=== PATIENT | male | born 1940 | race Caucasian/White ===

== ENCOUNTER 2016-11-19 13:32 | Inpatient (IN) | payer MEDICARE, OTHER ==
[~2016-11-19] VITALS: Ht 177.8 cm; Wt 68.0 kg
[~2016-11-19 13:32] MED LIST: ATEN50TA PO; CHOL200047 PO; MULT-666 PO; WARF2TAB7 PO; ZOF8 PO
[2016-11-19 13:58] VITALS: BP 92/54; PULSE 108; RESP 16; O2SAT 99
[2016-11-19] MEDS ORDERED: 0.9% Sodium Chloride 1,000 ML IV ONE ×3 (14:31→15:20)
--- NOTE | 2016-11-19 14:31 | ED.REPORT ---
HPI-Abd Pain M 40 and Over Date of Service Nov 19, 2016 ED Provider: Nitin Mendez MD The pt is a 76 y/o male w/ a hx of cancer and HTN presenting to the ED complaining of diarrhea onset 3 days ago. He reports hearing gurgling as well as severe stomach pain every 10 minutes depending on the position of his body. Lying supine decreases the pain but laying on his side increases it. The pt has not eaten solid foods since three days ago which has helped decrease his symptoms. Episodes of flatulence help the pt feel better but he does not feel like he has a complete bowel blockage. His friend also reports the pt sounding "drunk and like a child" last night but the pt reports not taking any medication of consuming alcohol. He also reports having chills. Denies fever, vomiting, nausea, diaphoresis. Nursing Notes Stated Complaint: STOMACH PAIN Chief Complaint: Male Abdominal Pain Nursing Notes Reviewed: Yes (CapLinked, meds not reconciled - h/o warfarin use, now on XARELTO) Allergies: Coded Allergies: No Known Allergies (Unverified , 10/06/15) Scheduled Atenolol (Atenolol) 25 Mg Tablet 50 MG PO QAM Cholecalciferol (Vitamin D3) (Vitamin D3) 2,000 Unit Capsule 2,000 UNIT PO DAILYWD Melatonin (Melatonin) 5 Mg Tablet 5 MG PO HS Multivitamin (Once Daily) 1 Each Tablet 1 EACH PO DAILYWD Rivaroxaban (Xarelto) 20 Mg Tablet 20 MG PO DAILYWD Scheduled PRN Ondansetron (Zofran) 8 Mg Tablet 8 MG PO Q8H PRN PRN For Nausea General Time Seen by MD: 14:29 Chief Complaint Diarrhea moderate Hx Obtained From: Patient Arrived By: Walk-in Sudden in Onset?: Yes Onset Occurred: 3 days ago Recent Healthcare: No recent hospitalization, Recent doctor visit Similar Sx Previous: No Past Medical History Past Medical History Notes: Oncologist Dr. 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 Skin: Denies Diaphoresis Physical Exam Initial Vital Signs Vital Signs (First) Date Time Temp Pulse Resp B/P Pulse Ox O2 Delivery O2 Flow Rate FiO2 11/19/16 13:58 37.1 108 16 92/54 99 Room Air Initial VS: Reviewed, Vital signs abnormal General/Constitutional: Awake, Alert, Well appearing, Not toxic appearing No dehydration although pt describes being dehydrated Respiratory / Chest: Atraumatic, Breath sounds NL, Breath sounds = bilat Cardiovascular: Heart rate NL, Regular rhythm, Heart sounds NL Abdomen: Atraumatic, Soft, Non-tender No signs of abdominal peritonitis Back: Atraumatic, Full range of motion Head / Eyes: Atraumatic, Normocephalic ENT: Atraumatic, Airway patent Skin: Atraumatic, Color NL, No rash, Warm, Dry Neurologic: Oriented X3, Speech NL Psychiatric: Affect NL, Mood NL Interpretation & Diagnostics Lab Results Interpretation Result Diagram: 11/19/16 1415 11/19/16 1415 Test 11/19/16 14:15 11/19/16 14:42 11/19/16 16:50 White Blood Count 3.6th/mm3 (3.8-10.1) Red Blood Count 3.22mil/mm3 (4.40-5.80) Hemoglobin 11.2g/dL (13.8-17.2) Hematocrit 32.0% (41.0-50.0) Mean Corpuscular Volume 99.4fL (81-100) Mean Corpuscular Hemoglobin 34.8pg (27.0-35.0) Mean Corpuscular Hemoglobin Concent 35.0% (32.0-37.0) Red Cell Distribution Width 19.0% (12.3-15.4) Platelet Count 124bil/L (150-400) Neutrophils (%) (Auto) 27% (40-74) Lymphocytes (%) (Auto) 23% (14-46) Monocytes (%) (Auto) 20% (4-12) Eosinophils (%) (Auto) 0% (0-5) Basophils (%) (Auto) 0% (0-3) Band Neutrophils % 30% (1-5) Nucleated Red Blood Cells 2/100 WBC (0-24) Sodium Level 137mEq/L (134-144) Potassium Level 3.0mEq/L (3.5-5.2) Chloride Level 104mEq/L (97-108) Carbon Dioxide Level 17mmol/L (18-29) Blood Urea Nitrogen 22mg/dL (8-27) Creatinine 0.79mg/dL (0.76-1.27) Estimat Glomerular Filtration Rate 102mL/min (>59) Glucose Level 149mg/dL (60-99) Calcium Level 8.6mg/dL (8.5-10.1) Magnesium Level 1.6mg/dL (1.6-2.6) Total Bilirubin 0.9mg/dL (0.0-1.2) Aspartate Amino Transf (AST/SGOT) 14U/L (0-50) Alanine Aminotransferase (ALT/SGPT) 15U/L (0-44) Alkaline Phosphatase 41U/L (25-160) Total Protein 5.8g/dL (6.4-8.4) Albumin 3.3g/dL (3.4-5.0) Lipase 42U/L (13-60) Prothrombin Time 17.8sec (8.1-12.5) Prothromb Time International Ratio 1.65ratio Lactic Acid Level 1.6mmol/L (0.4-2.0) Lab Results Interpretation: CBC mild leukopenia, not neutropenic-differential notable for 30% bandemia, mild anemia, mild thrombocytopenia -on chemotherapy CMP moderate hypokalemia, moderately low CO2 INR is marginally elevated-all the patient is just transferred to [facility] Blood cultures pending ECG Interpretation ECG Interpretation: Rate 117 Atrial fibrillation Nonspecific repolarization abnormality, diffuse leads Time: 14:51 Interpreted by: ED physician CT Abd / Pelvis Interpretation IMPRESSION: 1. Findings consistent with severe enteritis of the mid and distal small bowel. No findings to suggest obstruction. 2. Multiple subcentimeter hypodense liver lesions some of which are present and enhance on the comparison MRI dated 08/17/16. These findings are suspicious for metastatic disease. These findings were discussed with Dr. Mendez at 3:58 PM on 11/19/16. Dictated by: Chiquita Cheng M.D. on 11/19/2016 at 15:50 Approved by: Chiquita Cheng M.D. on 11/19/2016 at 16:00 Study type: Abdom CT oral contrast Interpretation / Wet Read by: Interpret - Radiologist Re-Eval/Medical Decision Med Decision/Clinical Course This is a 76-year-old male on chemotherapy for metastatic colon CA he developed diarrhea and crampy abdominal discomfort on Saturday, and his symptoms have persisted and he still feels lousy and weak. He had terrible diarrhea Saturday and Saturday, but reports basically stopped eating solid foods the diarrhea has diminished-only still has intermittent crampy discomfort. He has had some chills, but is not certain he has had a fever. He has intermittent pain-but reports he is not having pain at the moment declines any pain medicines in the department. He reports no vomiting. He denies any nausea present. He reports he has been holding on throughout the weekend, waiting to come in to [facility] today is his oncologist is here. He denies any known infectious exposures, has no additional complaints. Exam he is fatigued, but nontoxic. His abdomen is actually soft and clinically nontender without signs of a surgical abdomen or peritonitis. Lab work was obtained and is notable for significant bandemia 30%, when I discussed this with his oncologist given his chemotherapy regimen he thinks that this is indeed slightly this portion it for his recovery phase, and recommends cultures and empiric antibitiocs with levaquin. Blood cultures are being drawn. Have ordered stool GI panel for PCR, but the patient does not had an episode of diarrhea here. CT imaging is indeed suggestive of diffuse enteritis, and also reveals that known metastases. I discussed the case with the patient's oncologist and the plan is admission, hydration, potassium replacement empiric antibiotics. Source of Hx: Old records Time of Eval: 16:40 Re-Evaluation/Progress Note: Pt rechecked. Informed pt of need for admission. Pt understands and agrees with plan for admission. All questions addressed. Consultation #1: Referral / Consult Name: Virgilio Iraheta MD Fish Agent: Will see patient, Agrees with plan Note: Cases discussed. He indicates the bandemia is higher than expected for his chemotherapy regiment and recommends cultures and empiric box with Levaquin. He recommends admission for IV fluids, potassium replacement, and anticipates seeing the patient in the morning. Consultation #2: Referral / Consult Name: Sahil Bagi MD Consulted With: Hospitalist Call Returned at: 17:16 Fish Agent: Will see patient, Agrees with eval, Agrees with plan, Accepts admit Counseled Regarding: Diagnosis, Lab results, Need for admission Discharge & Departure Primary Impression: Chest pain Chest pain type: unspecified Qualified Code: R07.9 - Chest pain, unspecified Disposition: ADMITTED TO HOSPITAL Vital Signs - All Vital Signs Date Time Temp Pulse Resp B/P Pulse Ox O2 Delivery O2 Flow Rate FiO2 11/19/16 16:24 36.8 106 16 101/64 100 Room Air 11/19/16 13:58 37.1 108 16 92/54 99 Room Air )( All Prior VS Reviewed: Yes Condition: Stable Referrals: OTHER,PHYSICIAN (PCP) [facility] Scribe Attestation Portions of this note were transcribed by Edson Cerrato. I, Dr. Mendez personally performed the history, physical exam and medical decision-making; I reviewed and confirmed the accuracy of the information in the transcribed note. Signed by : Benjie Romero, 11/19/16 and 1641. copies to: [facility] Nitin Mendez MD Nov 19, 2016 14:31 Edson Cerrato Nov 19, 2016 16:41
[2016-11-19] MEDS ORDERED: Ondansetron 2 mg/mL 2 mL Inj IVPUSH ONE (14:35)
[2016-11-19] MEDS ORDERED: HYDROmorphone 0.5 mg/0.5 mL iSecure Syringe IVPUSH PRN (14:35)
[2016-11-19 14:40] LABS: Mean Corpuscular Hemoglobin 34.8 pg (27.0-35.0); Mean Corpuscular Volume 99.4 fL (81-100); Platelet Count 124 bil/L (150-400)
[2016-11-19 14:49] LABS: Magnesium 1.6 mg/dL (1.6-2.6)
[2016-11-19 15:04] LABS: BASOPHILS % (AUTO) 0 % (0-3); EOSINOPHILS % (AUTO) 0 % (0-5); MONOCYTES % (AUTO) 20 % (4-12); NEUTROPHILS % (AUTO) 27 % (40-74)
[2016-11-19 15:06] LABS: INR 1.65 ratio
--- NOTE | 2016-11-19 16:02 | DRSVH ---
PROCEDURE: CT ABDOMEN AND PELVIS WITH CONTRAST ([id number]) INDICATIONS: abd pain TECHNIQUE: After the administration of intravenous contrast, 5 mm thick sections acquired from the diaphragm to the symphysis. 5 mm coronal and sagittal reformats were acquired. For radiation dose reduction, the following was used: automated exposure control, adjustment of mA and/or kV according to patient siz e. COMPARISON: Outside Film, MR, MR ABD MRCP, 08/17/2016, 13:54. Outside Film, CT, CT CHEST ABD PELVIS W CON, 05/10/2016, 10:50. Outside Film, CT, CT ABD PELVIS W CON, 08/13/2015, 15:30. Outside Film, CT , CT ABD PELVIS W CON, 10/19/2016, 11:12. FINDINGS: Image quality: Excellent. ABDOMEN: Lung bases: Mild atelectasis is present at the right lung base. No pleural effusion or pneumothorax. Solid organs: Liver and spleen are normal in size and enhancement. Subcentimeter low density lesions are present within the liver. These were not visualized on the comparison CT dated 05/10/16 [facility] isaiah ent for new hepatic metastasis. Gallbladder is contracted. Biliary system is non dilated. Pancreas enhances normally. Low-density right adrenal gland nodule is unchanged suggesting an adrenal adenoma. No left adrenal nodules. Kidneys demonstrate normal size and enhancement, without hydronephrosis. A low density cystic lesion is present within the left upper pole. A large low density cyst is present within the lower pole of the right kidney. Peritoneum and bowel: The stomach is decompressed. The proximal portion of the small bowel demonstrat es normal caliber and wall thickness. Patient is status post right hemicolectomy. The mid and distal portion of the remaining small bowel demonstrates diffuse mucosal thickening and perienteric fat stra nding. No pneumatosis. No free abdominal fluid. No pneumoperitoneum. Nodes and vessels: No retroperitoneal or mesenteric adenopathy by size criteria. Aorta and inferior vena cava are normal in size. Miscellaneous: No ventral hernias. PELVIS: Genitourinary: Bladder wall thickness is normal. Miscellaneous: No inguinal hernias or adenopathy. Bones: No suspicious bony lesions. No vertebral body compression fractures. IMPRESSION: 1. Findings consistent with severe enteritis of the mid and distal small bowel. No findings to sugges t obstruction. 2. Multiple subcentimeter hypodense liver lesions some of which are present and enhance on the compar anitha MRI dated 08/17/16. These findings are suspicious for metastatic disease. These findings were discussed with Dr. Mendez at 3:58 PM on 11/19/16. Dictated by: Chiquita Cheng M.D. on 11/19/2016 at 15:50 Approved by: Chiquita Cheng M.D. on 11/19/2016 at 16:00
[2016-11-19] MEDS ORDERED: Potassium Chloride 20 mEq/15 mL 15mL Oral Soln PO ONE (16:20)
[2016-11-19] MEDS ORDERED: levoFLOXacin Inj 750 MG in IV Premix 1 EACH IV ONE (16:20)
[2016-11-19 16:24] VITALS: BP 101/64; PULSE 106; RESP 16; O2SAT 100
[2016-11-19] MEDS ORDERED: ATEN25TA PO (16:44)
[2016-11-19] MEDS ORDERED: RIVA20TA PO (16:44)
[2016-11-19] MEDS ORDERED: MELA5TAB14 PO (16:46)
[2016-11-19] MEDS ORDERED: 0.9% Sodium Chloride 1,000 ML IV SCH (17:31)
[2016-11-19] MEDS ORDERED: Alum-Mag Hydrox-Simeth 30 mL Suspension PO PRN ×2 (17:35→17:55)
[2016-11-19] MEDS ORDERED: Ondansetron 2 mg/mL 2 mL Inj IVPUSH PRN ×2 (17:35→17:55)
[2016-11-19] MEDS ORDERED: Polyethylene Glycol (PEG) 17 Gm Powder PO PRN (17:55)
[2016-11-19 18:08] VITALS: BP 117/71; PULSE 120; RESP 19; O2SAT 100
[2016-11-19 18:23] VITALS: PULSE 102
[2016-11-19] MEDS ORDERED: Sodium Chloride LOK Flush 10 mL Syringe IVFLUSH PRN ×2 (19:20)
[2016-11-19] MEDS ORDERED: 0.9% Sodium Chloride 250 ML IV SCH (19:20)
[2016-11-19] MEDS ORDERED: HepLOK Flush 100 unit/mL 5 mL Inj IVFLUSH PRN (19:20)
[2016-11-19 20:00] VITALS: PULSE 125
[2016-11-19 21:08] VITALS: BP 111/69; PULSE 100; RESP 20; O2SAT 100
--- NOTE | 2016-11-19 21:21 | PCM.HPMED ---
Subjective Date of Service Nov 19, 2016 Primary Provider: Admitting Physician: Sahil Baig MD Primary Care Physician: Other,Physician Attending Physician: Sahil Baig MD Chief Complaint: "Stomach pain" History of Present Illness: The patient is a pleasant 76-year-old white male with a previous history of hypertension and atrial fibrillation who developed a bowel obstruction one year and 3 months ago. He was found to have colon cancer and underwent a colon resection with primary reanastomosis at [facility] in [place], [place]. Patient was then referred to a local oncologist and eventually chose to go to met Dr. Iraheta in [place], [place]. 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 The patient was started on chemotherapy and received 12 cycles for 24 weeks ending in April 2016. The patient earlier this year, he believes in approximately July, began a new chemotherapy with XELIRI. Patient has received 2 rounds of chemotherapy and after the second cycle head diarrhea. Patient presented to the emergency department today complaining of diarrhea with an onset 3 days ago. He reported hearing gurgling as well as having severe stomach pain every 10 minutes depending on the position of his body. He stated that lying supine decrease the pain but lying on his side increased it. The patient had not eaten solid food since 3 days ago when he first developed the abdominal pain. Episodes of flatulence of help the patient feel better. He did not feel like he had a complete lateral bowel back blockage like he has had in the past. He also reported having chills with shivering in his room in his condominium which was quite warm. He thought it was that the room was very warm and he continued to shiver. He then came to [facility] emergency room and was evaluated by Dr. Nitin Mendez. Dr. Nitin Mendez contacted Dr. Iraheta who recommended that the patient be placed on Levaquin and be admitted to the hospital. Therefore, the patient was admitted to the hospital service for further evaluation and treatment. Review of Systems: General.: Patient states that he was a flabby fat kid when he was growing up and he works very hard to get to a normal weight he was eventually successful and has maintained that weight and has not lost any significant weight since the diagnosis of colon cancer. HEENT: Patient has no headache, patient has no diplopia, patient has no changes in vision. He wears corrective lenses. Patient has no problems with his ears, nose or throat. Patient has no known dental problems. Patient has no pharyngitis or history of thrush. Neck: Patient has no stiffness in the neck. Patient has no lymphadenopathy. Patient has no other problems with their neck. Pulmonary: Patient has no shortness of breath, no cough, no expectoration of sputum. Patient has no pleurisy. Patient has no chest pain. Patient has no history of asthma or COPD. Cardiovascular: Patient has no chest pain. Patient has no history of heart murmur. Patient has no palpitations. Patient has no history of myocardial infarction. Patient has no history of coronary artery disease. The patient does have a long history of atrial fibrillation and was on warfarin until recently when he was switched his or also due to possibility of interaction with warfarin with his new chemotherapy. Gastrointestinal: Patient has no history of hepatitis A or B. He does have a history of hepatitis C. and underwent 24 months of treatment with interferon infusions and his hepatitis C appears to be in remission, as multiple tests for the virus have been undetectable. Patient was tested for HIV a year ago and was negative. Patient has no history of peptic ulcer disease. Patient has no history of gastroesophageal reflux disease. Patient now has nausea without vomiting. The patient now has abdominal pain and diarrhea. Patient has no history of hematemesis, hematochezia, or melena. Patient has no history of colitis previously. Renal: Patient has no history of kidney disease. No history of kidney stones. Genitourinary: Patient has no history of dysuria, frequency, or incontinence. Patient has no previous history of genitourinary problems. Patient does state that he has nocturia 2-3 times in the evening. He has never been diagnosed with BPH however. Musculoskeletal: Patient has no history of muscular skeletal problems. Neurologic: Patient has no history of stroke, no history of seizure, no history of TIA. Psychiatric: Patient has no history of psychiatric problems. The remainder of the entire review of systems was reviewed with patient and is as mentioned above otherwise negative. Allergies Coded Allergies: No Known Allergies (Unverified , 10/06/15) Home Medications Scheduled Atenolol (Atenolol) 25 Mg Tablet 50 MG PO QAM Cholecalciferol (Vitamin D3) (Vitamin D3) 2,000 Unit Capsule 2,000 UNIT PO DAILYWD Melatonin (Melatonin) 5 Mg Tablet 5 MG PO HS Multivitamin (Once Daily) 1 Each Tablet 1 EACH PO DAILYWD Rivaroxaban (Xarelto) 20 Mg Tablet 20 MG PO DAILYWD Scheduled PRN Ondansetron (Zofran) 8 Mg Tablet 8 MG PO Q8H PRN PRN For Nausea PMH T3 N2 aM1 be moderately differentiated, invasive colorectal cancer invading the cecum just distal to the ileocecal valve on chemotherapy (now on XELIRI) Atrial fibrillation Hypertension Hepatitis C treated with interferon for 24 months with excellent outcome Patient states that he has never had a Bioprosthetic [facility] aortic valve which is listed in his computerized medical history Surgical History Patient has had a tonsillectomy Patient has had a right inguinal hernia repair 50 years later patient had a left inguinal hernia repair Patient had a colon resection of his adenocarcinoma with primary reanastomosis approximately 1 year and 3 months ago at [facility] in [place], [place]. He states that he never had a bioprosthetic aortic valve placed or any other heart surgery. Family History Patient's father at the age of 78 from some sort of cancer the patient does not know what type. Patient's mother of a brain cancer which she was diagnosed with a 34 and she at 46. The patient has a half-brother which he has not spoken to in 10 years, and this far he knows he is healthy. Social History Hx Alcohol Use: Yes (The patient prefers to drink wine and occasionally will have a 750 mL bottle approximately 3 times a week.) Hx Substance Use: Yes (patient admits to smoking marijuana periodically. However, he did not want to talk about other previous drug use when he was younger. He did shoot narcotics intravenously one time and believes us how he got hepatitis C a long time ago.) Smoking Status: Former Smoker (The patient smoked for 2-3 years.) Years of Smokin Living Arrangement: with Family (The patient lives with his longtime significant other in [place], [place].) Additional Information The patient was born [place], [place]. As his mother at the end age of 46 with brain cancer that she suffered with for 12 years the patient went to a couple "boarding schools" he then ended up graduating from [place], [place] high school. Patient due to "wander last traveled across the [facility] to [place] and went to [facility] and then "dropped out" of college. 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 Patient then took a civil service exam and landed a job at the [employer]. 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 Patient states that he easily "throws fits " or loses his temper and during one of these episodes he also lost his job. 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 After serving 8 years of [employer] and [place] and 23 years in [place] he was offered early fdc and retired at the age of 58. Her random assortment of events patient ended up moving with his significant other to the [facility]. His significant other eventually lost his leg due to a sequence of circumstances and the couple ended up moving to [place], [place]. Together they live [place] in [place] [facility] Exam Vital Signs Vital Sign - Last Date Time Temp Pulse Resp B/P Pulse Ox O2 Delivery O2 Flow Rate FiO2 11/19/16 21:08 36.8 100 20 111/69 100 Room Air Exam General: Patient appears comfortable now that he has passed stool flatus and urine prior to my arrival. He occasionally is having hiccups or gastroesophageal reflux. HEENT: Head is atraumatic and normocephalic. With normal male pattern baldness Eyes: Pupils are equally round and reactive to light and accommodation. Extraocular muscles are intact. Sclera are white, anicteric. Subconjunctival mucosa is pink. Ears and nose are unremarkable. Oropharynx: There is no mucosal lesions, there is no thrush, there is no pharyngitis. Neck: Is supple, there are no nodes, or masses or tenderness. Chest: Is clear to auscultation and percussion. There are no rales, rhonchi, wheezes or rubs. Heart: Rate, rhythm is regular. There is no murmur, rub or gallop. Abdomen: Good bowel sounds are present. Abdomen is soft, nontender, no organomegaly or masses were appreciated. Extremities: Are symmetrical and well perfused. There is no edema, there is no cellulitis, no rash. There are a few areas of ecchymosis which the patient states he developed during the interferon treatments for his hepatitis C. Neurologic: There are no focal neurological deficits. Cranial nerves II through XII are intact. There are no sensory or motor deficits. Psychiatric: Patients mood is calm and shows no sign of agitation. Genital: Deferred Rectal: Deferred Lab and Diagnostics Result Diagram: 11/19/16 1415 11/19/16 141 Microbiology Blood cultures are pending and stool for gastrointestinal PCR panel is pending. X-Rays, CTs and MRIs PROCEDURE: CT ABDOMEN AND PELVIS WITH CONTRAST ([id number]) INDICATIONS: abd pain TECHNIQUE: After the administration of intravenous contrast, 5 mm thick sections acquired from the diaphragm to the symphysis. 5 mm coronal and sagittal reformats were acquired. For radiation dose reduction, the following was used: automated exposure control, adjustment of mA and/or kV according to patient size. COMPARISON: Outside Film, MR, MR ABD MRCP, 08/17/2016, 13:54. Outside Film, CT , CT CHEST ABD PELVIS W CON, 05/10/2016, 10:50. Outside Film, CT, CT ABD PELVIS W CON, 08/13/2015, 15:30. Outside Film, CT, CT ABD PELVIS W CON, 2016, 11:12. FINDINGS: Image quality: Excellent. ABDOMEN: Lung bases: Mild atelectasis is present at the right lung base. No pleural effusion or pneumothorax. Solid organs: Liver and spleen are normal in size and enhancement. Subcentimeter low density lesions are present within the liver. These were not visualized on the comparison CT dated 05/10/16 [facility] patient for new hepatic metastasis. Gallbladder is contracted. Biliary system is non dilated. Pancreas enhances normally. Low-density right adrenal gland nodule is unchanged suggesting an adrenal adenoma. No left adrenal nodules. Kidneys demonstrate normal size and enhancement, without hydronephrosis. A low density cystic lesion is present within the left upper pole. A large low density cyst is present within the lower pole of the right kidney. Peritoneum and bowel: The stomach is decompressed. The proximal portion of the small bowel demonstrates normal caliber and wall thickness. Patient is status post right hemicolectomy. The mid and distal portion of the remaining small bowel demonstrates diffuse mucosal thickening and perienteric fat stranding. No pneumatosis. No free abdominal fluid. No pneumoperitoneum. Nodes and vessels: No retroperitoneal or mesenteric adenopathy by size criteria. Aorta and inferior vena cava are normal in size. Miscellaneous: No ventral hernias. PELVIS: Genitourinary: Bladder wall thickness is normal. Miscellaneous: No inguinal hernias or adenopathy. Bones: No suspicious bony lesions. No vertebral body compression fractures. IMPRESSION: 1. Findings consistent with severe enteritis of the mid and distal small bowel. No findings to suggest obstruction. 2. Multiple subcentimeter hypodense liver lesions some of which are present and enhance on the comparison MRI dated 08/17/16. These findings are suspicious for metastatic disease. These findings were discussed with Dr. Mendez at 3:58 PM on 11/19/16. Dictated by: Chiquita Cheng M.D. on 11/19/2016 at 15:50 Approved by: Chiquita Cheng M.D. on 11/19/2016 at 16:00 12-lead ECG Atrial fibrillation with nonspecific repolarization abnormality. Cardiac Echo Impressions Pending Assessment & Plan The patient is a pleasant 76-year-old white male with a previous history of hypertension and atrial fibrillation who developed a bowel obstruction one year and 3 months ago. He was found to have colon cancer and underwent a colon resection with primary reanastomosis at [facility] in [place], [place]. Patient was then referred to a local oncologist and eventually chose to go to met Dr. Iraheta in [place], [place]. 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 The patient was started on chemotherapy and received 12 cycles for 24 weeks ending in April 2016. The patient earlier this year, he believes in approximately July, began a new chemotherapy with XELIRI. Patient has received 2 rounds of chemotherapy and after the second cycle head diarrhea. Patient presented to the emergency department today complaining of diarrhea with an onset 3 days ago. He reported hearing gurgling as well as having severe stomach pain every 10 minutes depending on the position of his body. He stated that lying supine decrease the pain but lying on his side increased it. The patient had not eaten solid food since 3 days ago when he first developed the abdominal pain. Episodes of flatulence of help the patient feel better. He did not feel like he had a complete lateral bowel back blockage like he has had in the past. He also reported having chills with shivering in his room in his condominium which was quite warm. He thought it was that the room was very warm and he continued to shiver. He then came to [facility] emergency room and was evaluated by Dr. Nitin Mendez. Dr. Nitin Mendez contacted Dr. Iraheta who recommended that the patient be placed on Levaquin and be admitted to the hospital. Therefore, the patient was admitted to the hospital service for further evaluation and treatment. # Abdominal pain, present at time of admission. Active - CT scan shows evidence of enteritis, see report above. - Rule out enteritis secondary to chemotherapy - Rule out enteritis secondary to infection. A gastrointestinal PCR study was sent this evening. - Dr. Iraheta has recommended Levaquin therapy, will continue # T3 N2 aM1 be moderately differentiated, with metastatic disease to the liver, present at the time of admission. Active - Patient had invasive colorectal cancer invading the cecum just distal to the ileocecal valve. - Patient is now on a second course of chemotherapy (now on XELIRI) - Patient developed diarrhea after the second course of XELIRI - Dr. Iraheta has been contacted by Dr. Nitin Mendez and will follow in a.m. # Atrial fibrillation, present times admission. Active ongoing - Continue atenolol as at home for rate control. - Continue Xarelto as at home per Dr. Iraheta. Apparently patient was taken off warfarin due to potential interactions with his new chemotherapy. # Hypertension, present times admission. Stable - Continue atenolol as at home # History of hepatitis C - Patient levels are apparently undetectable after receiving 48 weeks of interferon infusion therapy. This occurred during the . - Patient was tested for HIV approximately one year ago and was negative. Disposition: As patient will likely be admitted for more than 2 midnights, patient was admitted as an inpatient. Pain Evaluation: Adequate Pain Control GI Prophylaxis: Proton Pump Inhibitor VTE Prophylaxis: Sub-Q Heparin (Unfractionated) Resuscitation Status: CPR: Attempt Resuscitation ProvidenceSahil MD Nov 19, 2016 21:21
[2016-11-19] MEDS: Heparin 5,000 Unit/mL Inj SUBQ SCH (22:12)
[2016-11-19] MEDS ORDERED: Ondansetron 8 mg ODT Tablet PO PRN (22:20)
[2016-11-20] VITALS (9 sets, daily range): BP systolic 110–129; BP diastolic 68–85; PULSE 74–132; RESP 16–20; O2SAT 97–100
[2016-11-20] MEDS: Heparin 5,000 Unit/mL Inj SUBQ SCH ×3 (00:30→17:12)
[2016-11-20 05:17] LABS: BASOPHILS % (AUTO) 0.3 % (0-3); Mean Corpuscular Hemoglobin 35.1 pg (27.0-35.0); Platelet Count 115 bil/L (150-400)
[2016-11-20 05:41] LABS: EOSINOPHILS % (AUTO) 3 % (0-5); MONOCYTES % (AUTO) 20 % (4-12); NEUTROPHILS % (AUTO) 28 % (40-74)
[2016-11-20 06:11] LABS: Magnesium 1.6 mg/dL (1.6-2.6)
[2016-11-20] MEDS: Pantoprazole 40 mg ER24 Tablet PO SCH (07:57)
[2016-11-20] MEDS ORDERED: Magnesium Sulf 4 Gm/100 mL H2O 4 GM in IV Premix 1 EACH IV ONE (08:40)
--- NOTE | 2016-11-20 10:02 | DRSVH ---
PROCEDURE: X-RAY CHEST, TWO VIEWS ([id number]) INDICATIONS: Tachycardia/Possible CHF TECHNIQUE: 2 views of the chest were acquired. COMPARISON: None. FINDINGS: Surgical changes and devices: Right-sided port with tip overlying the atrial caval junction. Lungs and pleura: Tiny bilateral pleural effusions versus diaphragmatic insertions, no pneumothorax. Lungs are clear. Mediastinum: Mediastinal contours are normal. Heart size is normal. Tortuous descending aorta. Bones and chest wall: No suspicious bony abnormalities. Soft tissues appear unremarkable. IMPRESSION: 1. Large inspiration may reflect blunting of the costophrenic angles by diaphragmatic insertions vers us very small bilateral pleural effusions. 2. Lung is clear. 3. Tortuous thoracic aorta could represent atherosclerosis or hypertension. 4. Status post right-sided port Dictated by: Doug Fermin M.D. on 11/20/2016 at 9:57 Approved by: Doug Fermin M.D. on 11/20/2016 at 10:00
[2016-11-20] MEDS: Potassium Chloride 20 mEq SR Tablet PO SCH ×2 (10:10→20:15)
[2016-11-20] MEDS: 0.9% NaCl + KCl 20 mEq/L 1,000 ML IV SCH ×2 (10:11→21:02)
--- NOTE | 2016-11-20 16:13 | DRSVH ---
[facility] [address] [place] [address] Echocardiogram Report Name: JOSE CAO DStudy Date: 11/20/2016 Height: 7 0 in Hospital Exam Location: [facility] Weight: 1 50 lb Gender: Male BSA: 1.8 m2 : 1940 Age: 76 yrs BP: 110/7 5 mmHg Reason For Study: Atrial Fibrillation Performed By: Alondra Contreras Referring Physician: TAD ESTES Interpretation Summary 1) Mild concentric left ventricular hypertrophy with probably mildly reduced LV function (EF 45-50%). LV systolic function is hard to assess due to heart rate variability related to atrial fibrillation. 2) Normal right ventricular size with mildly reduced function. 3) Severe biatrial enlargement. 4) Mild to moderate mitral regurgitation. 5) Mild aortic regurgitation present. 6) Normal pulmonary artery pressures. 7) No prior Echo available for comparison. Procedure: A two-dimensional transthoracic echocardiogram with color flow and Doppler was performed. The study quality was technically adequate. There is no prior echocardiogram noted for this patient. Left Ventricle: The left ventricle is normal in size. Left ventricular wall thickness is mildly increased. Left ventricular systolic function is mildly reduced. The ejection fraction is estimated to be 45-50%. There are no focal wall motion abnormalities. Diastolic function could not be accurately assessed due to atrial fibrillation. Right Ventricle: The right ventricle is grossly normal size. Right ventricular systolic function is mildly reduced. Atria: Both atria are severely dilated. The interatrial septum is intact with no evidence for an atrial septal defect. Mitral Valve: The mitral valve leaflets appear mildly thickened, but open well. There is mild mitral annular calcification. There is mild to moderate mitral regurgitation. There are multiple regurgitant jets present. Aortic Valve: The aortic valve is trileaflet. The aortic valve opens well. The aortic valve is slightly calcified. There is no aortic valve stenosis. There is mild aortic regurgitation. Tricuspid Valve: The tricuspid valve leaflets are thin and pliable. There is mild tricuspid regurgitation. The right ventricular systolic pressure is estimated at 23 mmHg assuming a right atrial pressure of 3 mm Hg. Pulmonic Valve: The pulmonic valve is not well visualized. There is trace pulmonic regurgitation. Great Vessels: The aortic root is mildly dilated. The ascending aorta could not be visualized. The IVC is of normal diameter and collapses greater than 50% with a sniff. This suggests a low right atrial pressure of 3 mm Hg. Pericardium/ Pleura There is no pericardial effusion. There is no pleural effusion. MMode/2D Measurements & Calculations LVIDd: 4.4 cm RA long axis LVOT diam LVIDs: 3.4 cm LA A2 area: 27.3 cm : 2.6 cm FS: 22.9 % LA A4 area: 33.2 cm RA area IVSd: 1.3 cm LA length (vol): 7.2 cm LVPWd: 1.1 cm LA vol: 106.6 ml : 24.4 cm RA vol LA vol index: 57.7 ml/m2: 100.ml RA : 54.5 mm2 LV mitchell. diameter/BSA LV sys. diameter/BSA TAPSE: 1.4 cm (cm/m^2): 2.4 (cm/m^2): 1.8 Doppler Measurements & Calculations Ao V2 max TR max fantasma: 223.6 cm/secAo V2 mean LV V1 max PG : 98.7 cm/sec TR max P.0 mmHg : 77.9 cm/sec Ao max P.0 mmHg PA V2 max: 57.5 cm/sec Ao V2 VTI LV V1 VTI Ao mean P.7 mmHgPA mean P.92 mmHg : 13.2 cm LVOT Max Fantasma ODALIS(V,D): 3.9 cm2 : 73.3 cm/sec ODALIS(I,D): 3.9 cm sev ratio: 0.75 AI P1/2t: 857.0 msec AI dec slope : 145.1 cm/s2c PA V2 mean ODALIS indexed to BSA : 46.9 cm/sec (cm^2/m^2): 2.1 PA pr(Accel) : 37.9 mmHg Reading Physician:04:12 PM
[2016-11-20] MEDS ORDERED: levoFLOXacin Inj 500 MG in IV Premix 1 EACH IV SCH (17:00)
[2016-11-20] MEDS: levoFLOXacin Inj 500 MG in IV Premix 1 EACH IV SCH (17:21)
--- NOTE | 2016-11-20 22:04 | PCM.PNMED ---
Subjective Date of Service Nov 20, 2016 Subjective Patient states it is appetite is still very poor and he was not able to eat much of lunch, he had a little bit for breakfast. He has no other new complaints. Exam Vital Signs Vital Sign - Last Date Time Temp Pulse Resp B/P Pulse Ox O2 Delivery O2 Flow Rate FiO2 11/20/16 20:12 36.8 74 18 129/68 97 Room Air Intake and Output 11/19/16 11/19/16 11/20/16 Cumulative From/Thru 15:00 23:00 07:00 11/19/16 13:58 - 11/20/16 06:47 Intake Total 2000 ml 1021 ml 3021 ml Balance 2000 ml 1021 ml 3021 ml IV Total 2000 ml 1021 ml 3021 ml # Bowel Movements 1 1 Exam General: Patient appears comfortable now that he has passed stool, flatus and urine again prior to my arrival. He occasionally is having hiccups or gastroesophageal reflux. HEENT: Head is atraumatic and normocephalic. With normal male pattern baldness Eyes: Pupils are equally round and reactive to light and accommodation. Extraocular muscles are intact. Sclera are white, anicteric. Subconjunctival mucosa is pink. Ears and nose are unremarkable. Oropharynx: There is no mucosal lesions, there is no thrush, there is no pharyngitis. Neck: Is supple, there are no nodes, or masses or tenderness. Chest: Is clear to auscultation and percussion. There are no rales, rhonchi, wheezes or rubs. Heart: Rate, rhythm is regular. There is no murmur, rub or gallop. Abdomen: Good bowel sounds are present. Abdomen is soft, nontender, no organomegaly or masses were appreciated. Extremities: Are symmetrical and well perfused. There is no edema, there is no cellulitis, no rash. There are a few areas of ecchymosis which the patient states he developed during the interferon treatments for his hepatitis C. Neurologic: There are no focal neurological deficits. Cranial nerves II through XII are intact. There are no sensory or motor deficits. Psychiatric: Patients mood is calm and shows no sign of agitation. Genital: Deferred Rectal: Deferred Lab and Diagnostics Result Diagram: 11/20/16 0455 11/20/16 0455 Microbiology Blood cultures are pending and stool for gastrointestinal PCR panel is pending. X-Rays, CTs and MRIs PROCEDURE: CT ABDOMEN AND PELVIS WITH CONTRAST (PNL-7102) INDICATIONS: abd pain TECHNIQUE: After the administration of intravenous contrast, 5 mm thick sections acquired from the diaphragm to the symphysis. 5 mm coronal and sagittal reformats were acquired. For radiation dose reduction, the following was used: automated exposure control, adjustment of mA and/or kV according to patient size. COMPARISON: Outside Film, MR, MR ABD MRCP, 08/17/2016, 13:54. Outside Film, CT , CT CHEST ABD PELVIS W CON, 05/10/2016, 10:50. Outside Film, CT, CT ABD PELVIS W CON, 08/13/2015, 15:30. Outside Film, CT, CT ABD PELVIS W CON, 2016, 11:12. FINDINGS: Image quality: Excellent. ABDOMEN: Lung bases: Mild atelectasis is present at the right lung base. No pleural effusion or pneumothorax. Solid organs: Liver and spleen are normal in size and enhancement. Subcentimeter low density lesions are present within the liver. These were not visualized on the comparison CT dated 05/10/16 [facility] patient for new hepatic metastasis. Gallbladder is contracted. Biliary system is non dilated. Pancreas enhances normally. Low-density right adrenal gland nodule is unchanged suggesting an adrenal adenoma. No left adrenal nodules. Kidneys demonstrate normal size and enhancement, without hydronephrosis. A low density cystic lesion is present within the left upper pole. A large low density cyst is present within the lower pole of the right kidney. Peritoneum and bowel: The stomach is decompressed. The proximal portion of the small bowel demonstrates normal caliber and wall thickness. Patient is status post right hemicolectomy. The mid and distal portion of the remaining small bowel demonstrates diffuse mucosal thickening and perienteric fat stranding. No pneumatosis. No free abdominal fluid. No pneumoperitoneum. Nodes and vessels: No retroperitoneal or mesenteric adenopathy by size criteria. Aorta and inferior vena cava are normal in size. Miscellaneous: No ventral hernias. PELVIS: Genitourinary: Bladder wall thickness is normal. Miscellaneous: No inguinal hernias or adenopathy. Bones: No suspicious bony lesions. No vertebral body compression fractures. IMPRESSION: 1. Findings consistent with severe enteritis of the mid and distal small bowel. No findings to suggest obstruction. 2. Multiple subcentimeter hypodense liver lesions some of which are present and enhance on the comparison MRI dated 08/17/16. These findings are suspicious for metastatic disease. These findings were discussed with Dr. Mendez at 3:58 PM on 11/19/16. Dictated by: Chiquita Cheng M.D. on 11/19/2016 at 15:50 Approved by: Chiquita Cheng M.D. on 11/19/2016 at 16:00 12-lead ECG Atrial fibrillation with nonspecific repolarization abnormality. Cardiac Echo Impressions Echocardiogram Report Name: NASHJOSE LÓPEZ DStudy Date: 11/20/2016 Height: 7 0 in Hospital Exam Location: [facility] Weight: 1 50 lb Gender: Male BSA: 1.8 m2 : 1940 Age: 76 yrs BP: 110/7 5 mmHg Reason For Study: Atrial Fibrillation Performed By: Alondra Contreras Referring Physician: SAHIL ESTES Interpretation Summary 1) Mild concentric left ventricular hypertrophy with probably mildly reduced LV function (EF 45-50%). LV systolic function is hard to assess due to heart rate variability related to atrial fibrillation. 2) Normal right ventricular size with mildly reduced function. 3) Severe biatrial enlargement. 4) Mild to moderate mitral regurgitation. 5) Mild aortic regurgitation present. 6) Normal pulmonary artery pressures. 7) No prior Echo available for comparison. Assessment & Plan The patient is a pleasant 76-year-old white male with a previous history of hypertension and atrial fibrillation who developed a bowel obstruction one year and 3 months ago. He was found to have colon cancer and underwent a colon resection with primary reanastomosis at [facility] in [place], [place]. Patient was then referred to a local oncologist and eventually chose to go to met Dr. Iraheta in [place], [place]. 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 The patient was started on chemotherapy and received 12 cycles for 24 weeks ending in April 2016. The patient earlier this year, he believes in approximately July, began a new chemotherapy with XELIRI. Patient has received 2 rounds of chemotherapy and after the second cycle head diarrhea. Patient presented to the emergency department today complaining of diarrhea with an onset 3 days ago. He reported hearing gurgling as well as having severe stomach pain every 10 minutes depending on the position of his body. He stated that lying supine decrease the pain but lying on his side increased it. The patient had not eaten solid food since 3 days ago when he first developed the abdominal pain. Episodes of flatulence of help the patient feel better. He did not feel like he had a complete lateral bowel back blockage like he has had in the past. He also reported having chills with shivering in his room in his condominium which was quite warm. He thought it was that the room was very warm and he continued to shiver. He then came to [facility] emergency room and was evaluated by Dr. Nitin Mendez. Dr. Nitin Mendez contacted Dr. Iraheta who recommended that the patient be placed on Levaquin and be admitted to the hospital. Therefore, the patient was admitted to the hospital service for further evaluation and treatment. # Abdominal pain, present at time of admission. Active - CT scan shows evidence of enteritis, see report above. - Rule out enteritis secondary to chemotherapy - Rule out enteritis secondary to infection. A gastrointestinal PCR study was sent this evening. - The patient complained of shaking chills at home - Dr. Iraheta has recommended Levaquin therapy, will continue # T3 N2 aM1 moderately differentiated, with metastatic disease to the liver, present at the time of admission. Active - Patient had invasive colorectal cancer invading the cecum just distal to the ileocecal valve. - Patient is now on a second course of chemotherapy (now on XELIRI) - Patient developed diarrhea after the second course of XELIRI - Dr. Iraheta has been contacted by Dr. Nitin Mendez and will follow in a.m. # Atrial fibrillation, present times admission. Active ongoing - Continue atenolol as at home for rate control. - Continue Xarelto as at home per Dr. Iraheta. Apparently patient was taken off warfarin due to potential interactions with his new chemotherapy. - Echocardiogram shows ejection fraction of 40-45% and severe atrial dilatation which is not unexpected with long history of atrial fibrillation. # Hypertension, present times admission. Stable - Continue atenolol as at home # History of hepatitis C - Patient levels are apparently undetectable after receiving 48 weeks of interferon infusion therapy. This occurred during the . - Patient was tested for HIV approximately one year ago and was negative. Disposition: As patient will likely be admitted for more than 2 midnights, patient was admitted as an inpatient. Pain Evaluation: Adequate Pain Control GI Prophylaxis: Proton Pump Inhibitor VTE Prophylaxis: Sub-Q Heparin (Unfractionated) Resuscitation Status: CPR: Attempt Resuscitation [place] MD Nov 20, 2016 22:04
[2016-11-21] MEDS: Heparin 5,000 Unit/mL Inj SUBQ SCH (00:44)
[2016-11-21 04:35] VITALS: BP 110/65; PULSE 126; RESP 17; O2SAT 97
[2016-11-21 04:41] LABS: BASOPHILS % (AUTO) 0 % (0-3); Mean Corpuscular Hemoglobin 34.7 pg (27.0-35.0); Platelet Count 118 bil/L (150-400)
[2016-11-21 05:03] LABS: EOSINOPHILS % (AUTO) 0 % (0-5); MONOCYTES % (AUTO) 25 % (4-12); NEUTROPHILS % (AUTO) 28 % (40-74)
[2016-11-21 05:20] LABS: Magnesium 2.2 mg/dL (1.6-2.6)
[2016-11-21 05:22] VITALS: PULSE 89
[2016-11-21] MEDS: 0.9% NaCl + KCl 20 mEq/L 1,000 ML IV SCH ×2 (06:40→15:28)
[2016-11-21] MEDS: Potassium Chloride 20 mEq SR Tablet PO SCH ×2 (08:07→20:20)
[2016-11-21] MEDS: Pantoprazole 40 mg ER24 Tablet PO SCH (08:07)
[2016-11-21 10:01] LABS: APPEARANCE,URINE CLEAR (CLEAR,HAZY); COLOR,URINE YELLOW (YELLOW)
[2016-11-21 10:02] LABS: ICTOTEST,URINE NEGATIVE (Negative); OCCULT BLOOD,URINE NEGATIVE (NEGATIVE); UROBILINOGEN,URINE NORMAL (NORMAL)
[2016-11-21 12:51] VITALS: PULSE 90
[2016-11-21 16:07] VITALS: BP 120/77; PULSE 105; RESP 16; O2SAT 97
[2016-11-21] MEDS: levoFLOXacin Inj 500 MG in IV Premix 1 EACH IV SCH (17:17)
[2016-11-21 21:08] VITALS: BP 122/66; PULSE 77; RESP 18; O2SAT 100
--- NOTE | 2016-11-21 22:15 | PCM.PNMED ---
Subjective Date of Service Nov 21, 2016 Subjective Patient is feeling a little bit better and actually ate breakfast this morning. He is still having liquid stools. Patient has no new complaints. Exam Vital Signs Vital Sign - Last Date Time Temp Pulse Resp B/P Pulse Ox O2 Delivery O2 Flow Rate FiO2 11/21/16 21:08 36.9 77 18 122/66 100 Room Air Intake and Output 11/20/16 11/20/16 11/21/16 Cumulative From/Thru 15:00 23:00 07:00 11/19/16 13:58 - 11/21/16 05:51 Intake Total 600 ml 1419 ml 1671 ml 6711 ml Output Total 300 ml 300 ml Balance 600 ml 1419 ml 1371 ml 6411 ml Intake Oral 600 ml 572 ml 436 ml 1608 ml IV Total 847 ml 1235 ml 5103 ml Urine/Stool Mix 300 ml 300 ml # Voids 3 3 2 8 # Bowel Movements 2 2 5 10 Exam General: Patient appears much more comfortable today. HEENT: Head is atraumatic and normocephalic. With normal male pattern baldness Eyes: Pupils are equally round and reactive to light and accommodation. Extraocular muscles are intact. Sclera are white, anicteric. Subconjunctival mucosa is pink. Ears and nose are unremarkable. Oropharynx: There is no mucosal lesions, there is no thrush, there is no pharyngitis. Neck: Is supple, there are no nodes, or masses or tenderness. Chest: Is clear to auscultation and percussion. There are no rales, rhonchi, wheezes or rubs. Heart: Rate, rhythm is regular. There is no murmur, rub or gallop. Abdomen: Good bowel sounds are present. Abdomen is soft, nontender, no organomegaly or masses were appreciated. Extremities: Are symmetrical and well perfused. There is no edema, there is no cellulitis, no rash. There are a few areas of ecchymosis which the patient states he developed during the interferon treatments for his hepatitis C. Neurologic: There are no focal neurological deficits. Cranial nerves II through XII are intact. There are no sensory or motor deficits. Psychiatric: Patients mood is calm and he shows no sign of agitation. Genital: Deferred Rectal: Deferred Lab and Diagnostics Result Diagram: 11/21/16 04311/21/16 0430 Microbiology Blood cultures are pending and stool for gastrointestinal PCR panel is pending. X-Rays, CTs and MRIs PROCEDURE: CT ABDOMEN AND PELVIS WITH CONTRAST ([id number]) INDICATIONS: abd pain TECHNIQUE: After the administration of intravenous contrast, 5 mm thick sections acquired from the diaphragm to the symphysis. 5 mm coronal and sagittal reformats were acquired. For radiation dose reduction, the following was used: automated exposure control, adjustment of mA and/or kV according to patient size. COMPARISON: Outside Film, MR, MR ABD MRCP, 08/17/2016, 13:54. Outside Film, CT , CT CHEST ABD PELVIS W CON, 05/10/2016, 10:50. Outside Film, CT, CT ABD PELVIS W CON, 08/13/2015, 15:30. Outside Film, CT, CT ABD PELVIS W CON, 2016, 11:12. FINDINGS: Image quality: Excellent. ABDOMEN: Lung bases: Mild atelectasis is present at the right lung base. No pleural effusion or pneumothorax. Solid organs: Liver and spleen are normal in size and enhancement. Subcentimeter low density lesions are present within the liver. These were not visualized on the comparison CT dated 05/10/16 [facility] patient for new hepatic metastasis. Gallbladder is contracted. Biliary system is non dilated. Pancreas enhances normally. Low-density right adrenal gland nodule is unchanged suggesting an adrenal adenoma. No left adrenal nodules. Kidneys demonstrate normal size and enhancement, without hydronephrosis. A low density cystic lesion is present within the left upper pole. A large low density cyst is present within the lower pole of the right kidney. Peritoneum and bowel: The stomach is decompressed. The proximal portion of the small bowel demonstrates normal caliber and wall thickness. Patient is status post right hemicolectomy. The mid and distal portion of the remaining small bowel demonstrates diffuse mucosal thickening and perienteric fat stranding. No pneumatosis. No free abdominal fluid. No pneumoperitoneum. Nodes and vessels: No retroperitoneal or mesenteric adenopathy by size criteria. Aorta and inferior vena cava are normal in size. Miscellaneous: No ventral hernias. PELVIS: Genitourinary: Bladder wall thickness is normal. Miscellaneous: No inguinal hernias or adenopathy. Bones: No suspicious bony lesions. No vertebral body compression fractures. IMPRESSION: 1. Findings consistent with severe enteritis of the mid and distal small bowel. No findings to suggest obstruction. 2. Multiple subcentimeter hypodense liver lesions some of which are present and enhance on the comparison MRI dated 08/17/16. These findings are suspicious for metastatic disease. These findings were discussed with Dr. Mendez at 3:58 PM on 11/19/16. Dictated by: Chiquita Cheng M.D. on 11/19/2016 at 15:50 Approved by: Chiquita Cheng M.D. on 11/19/2016 at 16:00 12-lead ECG Atrial fibrillation with nonspecific repolarization abnormality. Cardiac Echo Impressions Echocardiogram Report Name: NASHJOSE DStudy Date: 11/20/2016 Height: 7 0 in Hospital Exam Location: [facility] Weight: 1 50 lb Gender: Male BSA: 1.8 m2 : 1940 Age: 76 yrs BP: 110/7 5 mmHg Reason For Study: Atrial Fibrillation Performed By: Alondra Contreras Referring Physician: SAHIL ESTES Interpretation Summary 1) Mild concentric left ventricular hypertrophy with probably mildly reduced LV function (EF 45-50%). LV systolic function is hard to assess due to heart rate variability related to atrial fibrillation. 2) Normal right ventricular size with mildly reduced function. 3) Severe biatrial enlargement. 4) Mild to moderate mitral regurgitation. 5) Mild aortic regurgitation present. 6) Normal pulmonary artery pressures. 7) No prior Echo available for comparison. Assessment & Plan The patient is a pleasant 76-year-old white male with a previous history of hypertension and atrial fibrillation who developed a bowel obstruction one year and 3 months ago. He was found to have colon cancer and underwent a colon resection with primary reanastomosis at [facility] in [place], [place]. Patient was then referred to a local oncologist and eventually chose to go to met Dr. Iraheta in [place], [place]. 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 The patient was started on chemotherapy and received 12 cycles for 24 weeks ending in April 2016. The patient earlier this year, he believes in approximately July, began a new chemotherapy with XELIRI. Patient has received 2 rounds of chemotherapy and after the second cycle head diarrhea. Patient presented to the emergency department today complaining of diarrhea with an onset 3 days ago. He reported hearing gurgling as well as having severe stomach pain every 10 minutes depending on the position of his body. He stated that lying supine decrease the pain but lying on his side increased it. The patient had not eaten solid food since 3 days ago when he first developed the abdominal pain. Episodes of flatulence of help the patient feel better. He did not feel like he had a complete lateral bowel back blockage like he has had in the past. He also reported having chills with shivering in his room in his condominium which was quite warm. He thought it was that the room was very warm and he continued to shiver. He then came to [facility] emergency room and was evaluated by Dr. Nitin Mendez. Dr. Ntiin Mendez contacted Dr. Iraheta who recommended that the patient be placed on Levaquin and be admitted to the hospital. Therefore, the patient was admitted to the hospital service for further evaluation and treatment. # Abdominal pain, present at time of admission. Active - CT scan shows evidence of enteritis, see report above. - Rule out enteritis secondary to chemotherapy - Rule out enteritis secondary to infection. A gastrointestinal PCR study was negative. - The patient complained of shaking chills at home - Dr. Iraheta has recommended Levaquin therapy, will continue. # T3 N2 aM1 moderately differentiated, with metastatic disease to the liver, present at the time of admission. Active - Patient had invasive colorectal cancer invading the cecum just distal to the ileocecal valve. - Patient is now on a second course of chemotherapy (now on XELIRI) - Patient developed diarrhea after the second course of XELIRI - Dr. Iraheta has been making courtesy visits. # Atrial fibrillation, present times admission. Active ongoing - Continue atenolol as at home for rate control. - Continue Xarelto as at home per Dr. Iraheta. Apparently patient was taken off warfarin due to potential interactions with his new chemotherapy. - Echocardiogram shows ejection fraction of 40-45% and severe atrial dilatation which is not unexpected with long history of atrial fibrillation. # Hypertension, present times admission. Stable - Continue atenolol as at home # History of hepatitis C - Patient levels are apparently undetectable after receiving 48 weeks of interferon infusion therapy. This occurred during the . - Patient was tested for HIV approximately one year ago and was negative. Disposition: The patient continues to tolerate his diet well and continues to improve possible discharged within the next 24 hours. Pain Evaluation: Adequate Pain Control GI Prophylaxis: Proton Pump Inhibitor VTE Prophylaxis: Sub-Q Heparin (Unfractionated) Resuscitation Status: CPR: Attempt Resuscitation SafiaSahil MD Nov 21, 2016 22:15
[2016-11-22] VITALS (8 sets, daily range): BP systolic 93–115; BP diastolic 55–72; PULSE 87–125; RESP 16–20; O2SAT 93–99
[2016-11-22] MEDS: 0.9% NaCl + KCl 20 mEq/L 1,000 ML IV SCH ×2 (01:43→12:09)
[2016-11-22 04:42] LABS: Mean Corpuscular Hemoglobin 34.3 pg (27.0-35.0); Mean Corpuscular Volume 100.4 fL (81-100); Platelet Count 112 bil/L (150-400)
[2016-11-22 05:03] LABS: BASOPHILS % (AUTO) 0 % (0-3); EOSINOPHILS % (AUTO) 0 % (0-5); MONOCYTES % (AUTO) 20 % (4-12); NEUTROPHILS % (AUTO) 29 % (40-74)
[2016-11-22 05:29] LABS: Magnesium 1.8 mg/dL (1.6-2.6)
--- NOTE | 2016-11-22 05:56 | PROG NOTE ---
[address] [address] PROGRESS NOTE PATIENT: JOSE CAO : 1940 MR#: [id number] ADMIT: 11/19/2016 JOB ID: [id number] DATE: 11/21/2016 SUBJECTIVE: The patient is a 76-year-old gentleman hospitalized yesterday with severe diarrhea and dehydration. Associated with this, he was having severe abdominal pain. Imaging in the emergency department on November 19, 2016 showed severe enteritis of the mid and distal small bowel. There were no findings to suggest obstruction. Multiple sub cm hypodense liver lesions were consistent with previously identified liver metastases. He has been receiving IV fluids and bowel rest. He has had stool cultures which are negative for C. difficile and other pathologic organisms. He denies any blood per rectum. He is not on Imodium or Lomotil, given concerns about infectious diarrhea. No fevers. OBJECTIVE: Vitals: T 36.5, P 126, R 17, BP 110/65, O2 saturation 97% on room air. Weight 68 kg (baseline 71 kg). HEENT: Conjunctivae slightly pale. Mucous membranes moist. No oral lesions. Nodes: No adenopathy in the neck or axilla. Chest is clear. Cardiac tachycardic, but regular. Abdomen soft, nontender, with normoactive bowel tones. No splenomegaly or masses. Extremities: No edema, 2+ distal pulses. No calf tenderness. LABORATORIES: WBC 3.8, hemoglobin 10.1, hematocrit 28.8%, platelets 118,000. Sodium 142, potassium 3.6, BUN 20, creatinine 0.56. Glucose 123. CEA (October 11, 2016) 6.9. 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 GI toxicity is a common side effect of irinotecan, which can cause severe diarrhea and fluid loss. If cultures remain negative, strongly consider adding an antidiarrheal agent. Agree with fluid replacement and correction of electrolytes. The patient's upcoming treatment this week will be canceled, and we await resolution of his current symptoms. I will try to get a comparison of his recent films with prior imaging from [place].
[2016-11-22] MEDS: Pantoprazole 40 mg ER24 Tablet PO SCH (07:55)
[2016-11-22] MEDS: Potassium Chloride 20 mEq SR Tablet PO SCH (10:20)
--- NOTE | 2016-11-22 13:14 | PROG NOTE ---
[address] [address] PROGRESS NOTE PATIENT: JOSE CAO : 1940 MR#: [id number] ADMIT: 11/19/2016 JOB ID: [id number] DATE: 11/22/2016 SUBJECTIVE: The patient is a 76-year-old gentleman with metastatic colorectal cancer, admitted with dehydration and hypokalemia associated with chemotherapy-induced diarrhea. He is still having up to eight bowel movements a day, although the volume has significantly lessened. Stool cultures have been negative for infectious agents, including C. difficile. He is still a bit weak. No fevers. His atrial fibrillation rhythm has been moderately controlled, with a ventricular response between about 75 and 125 beats per minute. OBJECTIVE: Vitals: T 36.9, P 125, R 18, BP 93/55. O2 saturation 97% on room air. HEENT: Conjunctivae slightly pale. Mucous membranes moist. No oral lesions. Nodes: No adenopathy in the neck. Chest is clear. Cardiac exam is tachycardic and irregular. Abdomen soft, nontender, with normoactive bowel tones. Extremities: No edema. 2+ distal pulses. No calf tenderness. LABORATORY DATA: WBC 4.2, hemoglobin 9.2, hematocrit 26.9%, platelets 112,000. Sodium 140, potassium 3.8, BUN 13, creatinine 0.52, glucose 111. 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 Recent noninfectious diarrhea is almost certainly due to his treatment. I doubt that he can tolerate further irinotecan and Xeloda. We will see him in clinic on or about December 03, 2016 to discuss future management options. Tumor burden has been stable but he still has significant liver involvement.
--- NOTE | 2016-11-22 14:59 | PCM.DIMED ---
Discharge Instructions Date of Service Nov 22, 2016 Dates of Hospitalization Nov 19, 2016 at 17:42 Discharge Diagnosis Discharge Diagnosis Enteritis secondary to chemotherapy Diet Discharge Diet: No restrictions Activity Discharge Activity: No restrictions Call your provider Call your provider for: Fever or Chills, Shortness of breath, Bleeding, Chest pain, Vomitting, Excessive diarrhea, Weakness (unilateral) Patient Instructions Follow-up with PCP in: 2 weeks (The patient to follow up with Sim[facility] Steve in [place](His PCP)) Provider: Virgilio Iraheta MD Follow-up in: 2 weeks (The patient is to follow up on December 03 for a scheduled appointment.) Sahil Baig MD Nov 22, 2016 14:59
[2016-11-22] MEDS ORDERED: LEVO500T16 PO (15:03)
[2016-11-22] MEDS ORDERED: PANT40TA3 PO (15:03)
[2016-11-22] MEDS ORDERED: LOPE2CAP PO (15:03)
--- NOTE | 2016-11-23 00:14 | PCM.DC.MED ---
Discharge Summary Date of Service Nov 22, 2016 Dates of Hospitalization Date of Hospital Admission Nov 19, 2016 at 17:42 Date of Discharge: Nov 22, 2016 Providers: Admitting Physician: Sahil Baig MD Primary Care Physician: Other,Physician Attending Physician: Sahil Baig MD Diagnosis at Time of Discharge Diagnosis at Time of Discharge Enteritis secondary to chemotherapy Consultations Dr. Virgilio Iraheta has been making courtesy visits to the patient spent side every day. Procedures XRay, CTs & MRIs PROCEDURE: CT ABDOMEN AND PELVIS WITH CONTRAST ([id number]) INDICATIONS: abd pain TECHNIQUE: After the administration of intravenous contrast, 5 mm thick sections acquired from the diaphragm to the symphysis. 5 mm coronal and sagittal reformats were acquired. For radiation dose reduction, the following was used: automated exposure control, adjustment of mA and/or kV according to patient size. COMPARISON: Outside Film, MR, MR ABD MRCP, 08/17/2016, 13:54. Outside Film, CT , CT CHEST ABD PELVIS W CON, 05/10/2016, 10:50. Outside Film, CT, CT ABD PELVIS W CON, 08/13/2015, 15:30. Outside Film, CT, CT ABD PELVIS W CON, 2016, 11:12. FINDINGS: Image quality: Excellent. ABDOMEN: Lung bases: Mild atelectasis is present at the right lung base. No pleural effusion or pneumothorax. Solid organs: Liver and spleen are normal in size and enhancement. Subcentimeter low density lesions are present within the liver. These were not visualized on the comparison CT dated 05/10/16 [facility] patient for new hepatic metastasis. Gallbladder is contracted. Biliary system is non dilated. Pancreas enhances normally. Low-density right adrenal gland nodule is unchanged suggesting an adrenal adenoma. No left adrenal nodules. Kidneys demonstrate normal size and enhancement, without hydronephrosis. A low density cystic lesion is present within the left upper pole. A large low density cyst is present within the lower pole of the right kidney. Peritoneum and bowel: The stomach is decompressed. The proximal portion of the small bowel demonstrates normal caliber and wall thickness. Patient is status post right hemicolectomy. The mid and distal portion of the remaining small bowel demonstrates diffuse mucosal thickening and perienteric fat stranding. No pneumatosis. No free abdominal fluid. No pneumoperitoneum. Nodes and vessels: No retroperitoneal or mesenteric adenopathy by size criteria. Aorta and inferior vena cava are normal in size. Miscellaneous: No ventral hernias. PELVIS: Genitourinary: Bladder wall thickness is normal. Miscellaneous: No inguinal hernias or adenopathy. Bones: No suspicious bony lesions. No vertebral body compression fractures. IMPRESSION: 1. Findings consistent with severe enteritis of the mid and distal small bowel. No findings to suggest obstruction. 2. Multiple subcentimeter hypodense liver lesions some of which are present and enhance on the comparison MRI dated 08/17/16. These findings are suspicious for metastatic disease. These findings were discussed with Dr. Mendez at 3:58 PM on 11/19/16. Dictated by: Chiquita Cheng M.D. on 11/19/2016 at 15:50 Approved by: Chiquita Cheng M.D. on 11/19/2016 at 16:00 ECG 12 Lead Atrial fibrillation with nonspecific repolarization abnormality. Cardiac Echo Impression Echocardiogram Report Name: NASHJOSE DStudy Date: 11/20/2016 Height: 7 0 in Hospital Exam Location: [facility] Weight: 1 50 lb Gender: Male BSA: 1.8 m2 : 1940 Age: 76 yrs BP: 110/7 5 mmHg Reason For Study: Atrial Fibrillation Performed By: Alondra Contreras Referring Physician: SAHIL BAIG Interpretation Summary 1) Mild concentric left ventricular hypertrophy with probably mildly reduced LV function (EF 45-50%). LV systolic function is hard to assess due to heart rate variability related to atrial fibrillation. 2) Normal right ventricular size with mildly reduced function. 3) Severe biatrial enlargement. 4) Mild to moderate mitral regurgitation. 5) Mild aortic regurgitation present. 6) Normal pulmonary artery pressures. 7) No prior Echo available for comparison. Brief History The patient is a pleasant 76-year-old white male with a previous history of hypertension and atrial fibrillation who developed a bowel obstruction one year and 3 months ago. He was found to have colon cancer and underwent a colon resection with primary reanastomosis at [facility] in [place], [place]. Patient was then referred to a local oncologist and eventually chose to go to met Dr. Iraheta in [place], [place]. 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 The patient was started on chemotherapy and received 12 cycles for 24 weeks ending in April 2016. The patient earlier this year, he believes in approximately July, began a new chemotherapy with XELIRI. Patient has received 2 rounds of chemotherapy and after the second cycle head diarrhea. Patient presented to the emergency department today complaining of diarrhea with an onset 3 days ago. He reported hearing gurgling as well as having severe stomach pain every 10 minutes depending on the position of his body. He stated that lying supine decrease the pain but lying on his side increased it. The patient had not eaten solid food since 3 days ago when he first developed the abdominal pain. Episodes of flatulence of help the patient feel better. He did not feel like he had a complete lateral bowel back blockage like he has had in the past. He also reported having chills with shivering in his room in his condominium which was quite warm. He thought it was that the room was very warm and he continued to shiver. He then came to [facility] emergency room and was evaluated by Dr. Nitin Mendez. Dr. Nitin Mendez contacted Dr. Iraheta who recommended that the patient be placed on Levaquin and be admitted to the hospital. Therefore, the patient was admitted to the hospital service for further evaluation and treatment. Hospital Course The patient is a pleasant 76-year-old white male with a previous history of hypertension and atrial fibrillation who developed a bowel obstruction one year and 3 months ago. He was found to have colon cancer and underwent a colon resection with primary reanastomosis at [facility] in [place], [place]. Patient was then referred to a local oncologist and eventually chose to go to met Dr. Iraheta in [place], [place]. 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 The patient was started on chemotherapy and received 12 cycles for 24 weeks ending in April 2016. The patient earlier this year, he believes in approximately July, began a new chemotherapy with XELIRI. Patient has received 2 rounds of chemotherapy and after the second cycle head diarrhea. Patient presented to the emergency department today complaining of diarrhea with an onset 3 days ago. He reported hearing gurgling as well as having severe stomach pain every 10 minutes depending on the position of his body. He stated that lying supine decrease the pain but lying on his side increased it. The patient had not eaten solid food since 3 days ago when he first developed the abdominal pain. Episodes of flatulence of help the patient feel better. He did not feel like he had a complete lateral bowel back blockage like he has had in the past. He also reported having chills with shivering in his room in his condominium which was quite warm. He thought it was that the room was very warm and he continued to shiver. He then came to [facility] emergency room and was evaluated by Dr. Nitin Mendez. Dr. Nitin Mendez contacted Dr. Iraheta who recommended that the patient be placed on Levaquin and be admitted to the hospital. Therefore, the patient was admitted to the hospital service for further evaluation and treatment. # Abdominal pain, present at time of admission. Active - CT scan shows evidence of enteritis, see report above. - Rule out enteritis secondary to chemotherapy - Rule out enteritis secondary to infection. A gastrointestinal PCR study was negative. - The patient complained of shaking chills at home - Dr. Iraheta has recommended Levaquin therapy, will continue. # T3 N2 aM1 moderately differentiated, with metastatic disease to the liver, present at the time of admission. Active - Patient had invasive colorectal cancer invading the cecum just distal to the ileocecal valve. - Patient is now on a second course of chemotherapy (now on XELIRI) - Patient developed diarrhea after the second course of XELIRI - Dr. Iraheta has been making courtesy visits. # Atrial fibrillation, present times admission. Active ongoing - Continue atenolol as at home for rate control. - Continue Xarelto as at home per Dr. Iraheta. Apparently patient was taken off warfarin due to potential interactions with his new chemotherapy. - Echocardiogram shows ejection fraction of 40-45% and severe atrial dilatation which is not unexpected with long history of atrial fibrillation. # Hypertension, present times admission. Stable - Continue atenolol as at home # History of hepatitis C - Patient levels are apparently undetectable after receiving 48 weeks of interferon infusion therapy. This occurred during the . - Patient was tested for HIV approximately one year ago and was negative. Disposition: The patient was assessed by physical therapy and cleared for discharge home as he was deemed safe to navigate going in and out of his home. Patient will therefore be discharged home today. Exam Vital Signs (Last) Date Time Temp Pulse Resp B/P Pulse Ox O2 Delivery O2 Flow Rate FiO2 11/22/16 13:12 36.7 115 20 108/72 93 Room Air Test 11/19/16 14:15 11/19/16 14:42 11/19/16 16:50 11/20/16 04:55 Nucleated Red Blood Cells 2/100 WBC (0-24) Lipase 42U/L (13-60) Prothrombin Time 17.8sec (8.1-12.5) Prothromb Time International Ratio 1.65ratio Lactic Acid Level 1.6mmol/L (0.4-2.0) Metamyelocytes % 4% (0-0) Pro-B-Type Natriuretic Peptide 2521pg/mL (0-486) Procalcitonin 0.41ng/mL (0.00-0.08) Thyroid Stimulating Hormone (TSH) 8.240uIU/mL (0.450-4.500) Test 11/21/16 09:42 11/22/16 04:22 Urine Color Yellow (YELLOW) Urine Appearance Clear (CLEAR,HAZY) Urine pH 6.0 (5.0-8.0) Urine Specific [place] 1.030 (1.003-1.035) Urine Protein 30mg/dL (NEG,TRACE) Urine Glucose (UA) Negativemg/dL (NEGATIVE) Urine Ketones Tracemg/dL (NEGATIVE) Urine Occult Blood Negative (NEGATIVE) Urine Nitrite Negative (NEGATIVE) Urine Bilirubin Small (NEGATIVE) Urine Ictotest Negative (Negative) Urine Urobilinogen Normalmg/dL (NORMAL) Urine Leukocyte Esterase Negative (NEGATIVE) Urine RBC 0-2/hpf (0-2) Urine WBC 0-5/hpf (0-5) Urine Epithelial Cells Occasional/hpf (NONE-MOD) Urine Crystals None seen (NONE SEEN) Urine Bacteria Few/hpf (NONE-FEW) Urine Hyaline Casts None/lpf (NONE) Urine Granular Casts None seen (NONE SEEN) Urine Waxy Casts None seen (NONE SEEN) Urine Red Blood Cell Casts None seen (NONE SEEN) Urine White Blood Cell Casts None seen (NONE SEEN) Urine Mucus Present (None Seen) Urine Trichomonas None seen (NONE SEEN) Urine Yeast None (NONE SEEN) Urinalysis Comment None Urine Culture Reflexed Not indicated White Blood Count 4.2th/mm3 (3.8-10.1) Red Blood Count 2.68mil/mm3 (4.40-5.80) Hemoglobin 9.2g/dL (13.8-17.2) Hematocrit 26.9% (41.0-50.0) Mean Corpuscular Volume 100.4fL (81-100) Mean Corpuscular Hemoglobin 34.3pg (27.0-35.0) Mean Corpuscular Hemoglobin Concent 34.2% (32.0-37.0) Red Cell Distribution Width 19.4% (12.3-15.4) Platelet Count 112bil/L (150-400) Neutrophils (%) (Auto) 29% (40-74) Lymphocytes (%) (Auto) 23% (14-46) Monocytes (%) (Auto) 20% (4-12) Eosinophils (%) (Auto) 0% (0-5) Basophils (%) (Auto) 0% (0-3) Band Neutrophils % 28% (1-5) Sodium Level 140mEq/L (134-144) Potassium Level 3.8mEq/L (3.5-5.2) Chloride Level 113mEq/L (97-108) Carbon Dioxide Level 17mmol/L (18-29) Blood Urea Nitrogen 13mg/dL (8-27) Creatinine 0.52mg/dL (0.76-1.27) Estimat Glomerular Filtration Rate 165mL/min (>59) Glucose Level 111mg/dL (60-99) Calcium Level 7.8mg/dL (8.5-10.1) Magnesium Level 1.8mg/dL (1.6-2.6) Total Bilirubin 0.6mg/dL (0.0-1.2) Aspartate Amino Transf (AST/SGOT) 29U/L (0-50) Alanine Aminotransferase (ALT/SGPT) 34U/L (0-44) Alkaline Phosphatase 45U/L (25-160) Total Protein 4.3g/dL (6.4-8.4) Albumin 2.4g/dL (3.4-5.0) Microbiology Results Blood cultures are pending and stool for gastrointestinal PCR panel is pending. Discharge Medications Discharge Medications Atenolol (Atenolol) 25 Mg Tablet 50 MG PO QAM (Reported) Cholecalciferol (Vitamin D3) (Vitamin D3) 2,000 Unit Capsule 2,000 UNIT PO DAILYWD (Reported) Levofloxacin (Levaquin) 500 Mg Tablet 500 MG PO DAILY Prescribed by: GRACE BAIG MD Melatonin (Melatonin) 5 Mg Tablet 5 MG PO HS (Reported) Multivitamin (Once Daily) 1 Each Tablet 1 EACH PO DAILYWD (Reported) Pantoprazole DR (Pantoprazole DR) 40 Mg Tablet.dr 40 MG PO DAILYAC Prescribed by: GRACE BAIG MD Rivaroxaban (Xarelto) 20 Mg Tablet 20 MG PO DAILYWD (Reported) As needed Loperamide (Loperamide) 2 Mg Capsule 2 MG PO Q6H PRN PRN For Diarrhea or Loose Stool Prescribed by: GRACE BAIG MD Ondansetron (Zofran) 8 Mg Tablet 8 MG PO Q8H PRN PRN For Nausea (Reported) Followup Plan Disposition: Patient will be discharged home. He will be in the care of his significant other and friend. Discharge Diet: No restrictions Discharge Activity: No restrictions Follow-up with PCP in: 2 weeks (The patient to follow up with [facility] Steve in [place](His PCP)) Provider: Virgilio Iraheta MD Follow-up in: 2 weeks (The patient is to follow up on December 03 for a scheduled appointment.) Time spent Time spent on discharging this patient was greater than 35 minutes, over half of which was involved in counseling and coordination of care. Sahil Baig MD Nov 23, 2016 00:14
== END 2016-11-22 17:20 | disposition home or self-care (01) | DRG 391 ==
LOC: SED 13:32 → OSC 17:42
PROVIDERS: ADMIT Internal Medicine Infectious Disease; ATTEND Internal Medicine Infectious Disease
DX: K52.9 Noninfective gastroenteritis and colitis, unspecified (principal); D61.810 Antineoplastic chemotherapy induced pancytopenia; C78.7 Secondary malignant neoplasm of liver and intrahepatic bile duct; T45.1X5A Adverse effect of antineoplastic and immunosuppressive drugs, initial encounter; I10 Essential (primary) hypertension; I48.91 Unspecified atrial fibrillation; E86.0 Dehydration; Z85.038 Personal history of other malignant neoplasm of large intestine; Z86.19 Personal history of other infectious and parasitic diseases; Z87.891 Personal history of nicotine dependence